=== PATIENT | female | born 2000 | race Hispanic/Latino ===

== ENCOUNTER 2022-03-02 06:53 | Emergency (ER) | payer MEDICAID, SELFPAY | END 2022-03-02 08:15 | disposition home or self-care (01) | LOC: ERS 06:53 | DX: B34.9 Viral infection, unspecified (principal); Z20.822 Contact with and (suspected) exposure to COVID-19 | CPT/HCPCS: 87804; 99283; U0003; U0005 ==

== ENCOUNTER 2023-02-17 10:28 | Emergency (ER) | payer MEDICAID, SELFPAY ==
[2023-02-17] MEDS ORDERED: Ondansetron ODT 4 MG TAB ONE (10:43)
== END 2023-02-17 11:22 | disposition home or self-care (01) ==
LOC: ERS 10:28
DX: O21.9 Vomiting of pregnancy, unspecified (principal); Z3A.01 Less than 8 weeks gestation of pregnancy
CPT/HCPCS: 99283; Q0162